=== PATIENT | male | born 1985 | race Caucasian/White ===

== ENCOUNTER 2018-08-15 00:45 | Emergency (ER) | payer SELFPAY ==
[2018-08-15] MEDS ORDERED: Pantoprazole 40 MG VIAL ONE (01:04)
[2018-08-15] MEDS ORDERED: Ketorolac Tromethamine 30 MG/ML VIAL ONE ×2 (01:04→01:08)
[2018-08-15] MEDS ORDERED: Magnesium Sulfate 2 GM/100 ML BAG ONE (01:56)
[2018-08-15] MEDS ORDERED: Lidocaine Viscous Sol 2% 15 ml UD Cup ONE (01:56)
[2018-08-15] MEDS ORDERED: Lorazepam 0.5 MG TAB ONE ×2 (02:08→02:09)
--- NOTE | 2018-08-15 07:32 | RAD ---
PORTABLE CHEST: DATE: 08/15/2018. FINDINGS: An AP portable film at 0048 shows a normal-sized heart for an AP projection and body habitus. There is no vascular congestion, edema, or pleural effusion. The lungs are clear. The mediastinum appears normal and the trachea is midline. IMPRESSION: No acute thoracic findings. POS: HOME
== END 2018-08-15 02:17 | disposition home or self-care (01) ==
LOC: BURERS 00:45
DX: R07.89 Other chest pain (principal); F41.9 Anxiety disorder, unspecified; F17.210 Nicotine dependence, cigarettes, uncomplicated
CPT/HCPCS: 71045; 84484; 93005; 96374; 96375; C9113; J1885; J3475

== ENCOUNTER 2018-12-30 18:07 | Emergency (ER) | payer BC, SELFPAY | END 2018-12-30 18:40 | disposition home or self-care (01) | LOC: BURERS 18:07 | DX: S30.861A Insect bite (nonvenomous) of abdominal wall, initial encounter (principal); S30.860A Insect bite (nonvenomous) of lower back and pelvis, initial encounter; F17.210 Nicotine dependence, cigarettes, uncomplicated; W57.XXXA Bitten or stung by nonvenomous insect and other nonvenomous arthropods, initial encounter | CPT/HCPCS: 99282 ==

== ENCOUNTER 2019-01-18 20:53 | Emergency (ER) | payer BC ==
[2019-01-18 21:25] LABS: #Basophils 0.1 thou/uL (0.0-0.2); #Eosinphils 0.3 thou/uL (0.0-0.7); #Lymphocytes 3.4 thou/uL (1.20-3.40); #Monocytes 0.9 thou/uL (0.11-0.59); #Neutrophils 6.6 thou/uL (1.40-6.50); %Basophils 1.3 % (0.0-1.0); %Lymphocytes 29.8 % (21.0-51.0); %Monocytes 8.1 % (0.0-10.0); %Neutrophils 57.8 % (42.0-75.0); Hemoglobin 15.7 g/dL (14.0-18.0); Mean Corpuscular HGB CONC 33.7 g/dL (32.0-36.0); Mean Corpuscular Hemoglobin 29.2 pg (27.0-31.0); Mean Corpuscular Volume 86.9 fL (78.0-98.0); Mean Platelet Volume 10.2 fL (7.4-10.4); Platelet Count 199 thou/uL (130-400); RBC Distribution Width 11.4 % (11.5-14.5); Red Blood Cell (RBC) Count 5.36 mill/uL (4.70-6.10); White Blood Cell (WBC) Count 11.4 thou/uL (4.8-10.8)
[2019-01-18 21:35] LABS: ALT (SGPT) 38 U/L (8-55); AST (SGOT) 20 U/L (5-34); Albumin 4.3 g/dL (3.5-5.0); Alkaline Phosphatase 93 U/L (40-150); Anion Gap 14 mmol/L (10-20); BUN (Urea Nitrogen) 18 mg/dL (8.9-20.6); Bilirubin, Total 0.5 mg/dL (0.2-1.2); CK (CPK) 226 U/L (30-200); Calc. Creatinine Clearance 0 mL/min (70-130); Calcium 9.6 mg/dL (7.8-10.44); Carbon Dioxide 26 mmol/L (22-29); Chloride 106 mmol/L (98-107); Estimated GFR-MDRD 85; Globulin 2.6 g/dL (2.4-3.5); Glucose 116 mg/dL (70-105); Lipase 20 U/L (8-78); Potassium 3.9 mmol/L (3.5-5.1); Protein, Total 6.9 g/dL (6.0-8.3); Sodium 142 mmol/L (136-145)
--- NOTE | 2019-01-18 21:44 | CT ---
CT OF THE BRAIN WITHOUT CONTRAST: 01/18/[address] shows normal sized ventricles with no shift. No intracranial bleeding, mass or sign of acute stroke was found. There is good armstrong-white distinction. The skull appears normal. The visibl e paranasal sinuses and mastoids air cells are clear. IMPRESSION: No acute intracranial findings. POS: HOME
[2019-01-18 21:50] LABS: Bilirubin Small (Negative); Clarity Clear (Clear); Glucose, Urine (Dipstick) Negative (Negative); Leukocyte Negative (Negative); Nitrite Negative (Negative); Protein, Urine (Dipstick) 30 mg/dL (Neg-Trace); Urobilinogen > or = 8.0 mg/dL (Less than 2)
[2019-01-18 21:51] LABS: Blood, Urine Negative (Negative)
[2019-01-18 21:58] LABS: Mucous/LPF 1+ LPF (<2+); RBC/HPF 0-3 HPF (0-3); Squamous Epithelial 0-3 HPF (0-3); WBC/HPF 0-3 HPF (0-3)
== END 2019-01-18 22:10 | disposition home or self-care (01) ==
LOC: BURERS 20:53
DX: E86.0 Dehydration (principal); F17.210 Nicotine dependence, cigarettes, uncomplicated
CPT/HCPCS: 36416; 70450; 80053; 81003; 81015; 82550; 83605; 83690; 85025; 87804; 96360